=== PATIENT | female | born 1985 | race Caucasian/White ===

== ENCOUNTER → 2022-08-07 | Outpatient (CLI) | payer OTHER, SELFPAY ==
[2022-08-07 09:30] LABS: Bacteria 0 SEEN /hpf (None Seen); Mucous, Urine 0 SEEN /hpf (<or=2+)
[2022-08-07 12:42] LABS: Color, Urine Red (Yellow); Glucose, Dipstick Normal (Normal); Ketone-Dipstick Negative (Negative); Leukocyte Esterase-Dipstick 25 /ul (Negative); Nitrite-Dipstick Negative (Negative); Occult Blood-Urine 250 /ul (Negative); Protein-Dipstick 30 mg/dl (Negative); Specific Gravity, Urine 1.005 (1.002-1.030); Urine Bilirubin Dipstick Negative (Negative); Urine Clarity Sl. Cloudy (Clear); Urine Urobilinogen Normal (Normal); Urine pH 6.5 (5.0 - 8.0)
[2022-08-07 12:44] LABS: Hematocrit 41.2 % (37-47); Hemoglobin 13.9 g/dL (12.0-15.0); Mean Corp Hgb Conc 33.7 g/dL (32-36); Mean Corpuscular Hgb 29.4 pg (27.0-32.0); Mean Corpuscular Volume 87.3 fL (81-99); Mean Platelet Vol. 11.5 fl (6.2-12.0); Platelet Count 250 K/mm3 (150-450); RBC Distribution Width CV 12.1 % (11.6-14.6); RBC Distribution Width SD 38.9 fl (35.1-43.9); Red Blood Count 4.72 M/mm3 (4.2-5.4); White Blood Count 6.4 K/mm3 (4.4-11.0)
[2022-08-07 13:04] LABS: ALB/GLOB Ratio 1.2 RATIO (0.9-2.4); AST(SGOT) 22 U/L (15-37); Alanine Aminotransfer ALT/SGPT 18 U/L (13-56); Albumin, Serum 4.1 g/dL (3.2-5.0); Alkaline Phosphatase 55 U/L (45-117); Anion Gap 8 (5-15); BUN 12 mg/dL (7-18); BUN/Creat Ratio 13.9 RATIO (10-20); Calcium,Total 9.5 mg/dL (8.5-10.1); Chloride 107 mmol/L (98-107); Creatinine, Serum 0.87 mg/dL (0.55-1.02); EST Glomerular Filtration Rate 79 mL/min (>60); Est Glom Filt Rate - Afr Amer 96 mL/min (>60); Globulin 3.4 g/dL (2.2-4.2); Glucose 93 mg/dL (74-106); Potassium 3.9 mmol/L (3.5-5.1); Protein, Total 7.5 g/dL (6.4-8.2); Sodium Level 139 mmol/L (136-145); T4 Free Direct 1.04 ng/dL (0.76-1.46); Thyroid Stim Hormone (TSH) 0.87 uIU/mL (0.358-3.74)
[2022-08-07 13:13] LABS: Red Blood Cells-Urine 25-50 SEEN /hpf (0-5); Squamous Epithelial Cells - UA 0-5 SEEN /hpf (5-10); White Blood Cells 0-5 SEEN /hpf (0-5)
[2022-08-11 01:07] LABS: Thyroid Stim Immunoglob <0.10 IU/L (0.00-0.55)
[2022-08-14 14:32] LABS: Anti-Thyroglobulin AB < 1.0 IU/mL (0.0-0.9); Thyroglobulin, Serum Qt. 5.3 ng/mL (1.5-38.5); Thyroid Peroxidase AB < 8 IU/mL (0-34)
== END | disposition home or self-care (01) ==
LOC: MFPLAB 09:28
PROVIDERS: PCP Family Medicine; Referring Provider Family Medicine; Visit Provider Family Medicine
DX: R35.0 Frequency of micturition (principal); R39.12 Poor urinary stream; E01.0 Iodine-deficiency related diffuse (endemic) goiter
CPT/HCPCS: 36415; 80053; 81001; 84432; 84439; 84443; 84445; 85027; 86376; 86800; 87086; 87088

== ENCOUNTER 2022-08-12 15:14 | Outpatient (CLI) | payer OTHER, SELFPAY ==
--- NOTE | 2022-08-12 15:18 | US_ITS ---
EXAM: US SOFT TISSUES HEAD AND NECK, THYROID CLINICAL INDICATION: THYROMEGALY TECHNIQUE: Greyscale and color doppler imaging was performed of the thyroid gland. This report was created using [employer] technology. COMPARISON: None. FINDINGS: LEFT THYROID LOBE: Nodule inferior aspect of the left lobe of the thyroid that measures 7 x 5 x 4 mm, is solid, hypoechoic, taller than wide, with a smooth margin and no echogenic foci. Left lobe of thyroid measures 5.9 x 2.0 x 1.1 cm. The volume of the left lobe of thyroid measures 7.0 mL. RIGHT THYROID LOBE: Nodule superior aspect of the right lobe of the thyroid that measures 4 x 3 x 3 mm, is cystic and solid, hypoechoic, taller than wide, with a smooth margin and no echogenic foci. Right lobe of the thyroid measures 5.7 x 1.9 x 1.3 cm. The volume of the right lobe of the thyroid measures 7.4 mL. ISTHMUS: The isthmus measures 2 mm in thickness. No thyroid nodules are present. US/Thyroid IMPRESSION: 1. Thyroid gland upper normal in size with a volume of 14.4 mL. 2. Nodule superior aspect of the right lobe of the thyroid that measures 4 x 3 x 3 mm, is cystic and solid, hypoechoic, taller than wide, with a smooth margin and no echogenic foci. 3. Nodule inferior aspect of the left lobe of the thyroid that measures 7 x 5 x 4 mm, is solid, hypoechoic, taller than wide, with a smooth margin and no echogenic foci. RECOMMENDATIONS: 1. Nodule superior aspect of the right lobe of the thyroid that measures 4 x 3 x 3 mm, is cystic and solid, hypoechoic, taller than wide, with a smooth margin and no echogenic foci. TI-RADS points: 6. TI-RADS category: TR4. This nodule is moderately suspicious but no FNA or follow-up is necessary given the small size of this nodule. 2. Nodule inferior aspect of the left lobe of the thyroid that measures 7 x 5 x 4 mm, is solid, hypoechoic, taller than wide, with a smooth margin and no echogenic foci. TI-RADS points: 7. TI-RADS category: TR5. This nodule is highly suspicious but no FNA or follow-up is necessary given the small size of this nodule. Electronically Signed: James Tipton MD at 5:32 EST ,
--- NOTE | 2022-08-12 15:18 | US_ITS ---
STUDY: ULTRASOUND - URINARY BLADDER REASON FOR EXAM: Female, 37 years old. INCOMPLETE BLADDER EMPTYING- INCREASED FREQUENCY TECHNIQUE: Ultrasound evaluation of the urinary bladder was performed with real-time and static padron-scale imaging. COMPARISON: None. FINDINGS: There is no right UVJ calculus. There is a visualized right ureteral jet. There is no left UVJ calculus. There is a visualized left ureteral jet. The distended volume of the urinary bladder is 74.48 ml. The empty volume of the urinary bladder is 4.2 ml. The bladder wall is within normal limits. The bladder wall measures 2 mm. There is no demonstrated bladder wall mass lesion. There are no demonstrated bladder calculi. US/Post Void Residual Bladder IMPRESSION: Normal ultrasound of the urinary bladder. Electronically Signed: Elias Brooks MD at 22:57 EST ,
== END 2022-08-12 23:59 | disposition home or self-care (01) ==
LOC: US 15:16
PROVIDERS: PCP Family Medicine; Referring Provider Family Medicine; Visit Provider Family Medicine
DX: R33.9 Retention of urine, unspecified (principal); E01.0 Iodine-deficiency related diffuse (endemic) goiter
CPT/HCPCS: 51798; 76536

== ENCOUNTER → 2022-08-21 | Outpatient (CLI) | payer OTHER, SELFPAY ==
[2022-08-21 12:38] LABS: AST(SGOT) 15 U/L (15-37); Alanine Aminotransfer ALT/SGPT 22 U/L (13-56); Albumin, Serum 4.1 g/dL (3.2-5.0); Alkaline Phosphatase 57 U/L (45-117); Bilirubin, Direct 0.28 mg/dL (0.00-0.30); Globulin 3.3 g/dL (2.2-4.2); Protein, Total 7.4 g/dL (6.4-8.2)
== END | disposition home or self-care (01) ==
LOC: MTLAB 10:34
PROVIDERS: PCP Family Medicine; Referring Provider Family Medicine; Visit Provider Family Medicine
DX: E80.6 Other disorders of bilirubin metabolism (principal)
CPT/HCPCS: 36415; 80076

== ENCOUNTER → 2022-12-14 | Outpatient (CLI) | payer OTHER, SELFPAY ==
[2022-12-22 15:50] LABS: HPV APTIMA, High Risk Negative (Negative)
[2022-12-22 18:58] LABS: HPV Reflexed? YES, CHARGE PATIENT
== END | disposition home or self-care (01) ==
LOC: LABSPEC 14:00
PROVIDERS: PCP Family Medicine; Visit Provider Family Medicine
DX: Z01.419 Encounter for gynecological examination (general) (routine) without abnormal findings (principal)
CPT/HCPCS: 87624; 88175; G0145

== ENCOUNTER 2025-07-02 19:43 | Emergency (ER) | payer OTHER, SELFPAY ==
[2025-07-02 19:43] VITALS: BP 167/103; PULSE 83; RESP 16; TEMP 36.6; O2SAT 99; BMI 32.8
--- NOTE | 2025-07-02 20:48 | RAD_ITS ---
PROCEDURE: ANKLE MIN 3 VIEWS 07/02/2025 REASON FOR EXAM: INJURY/PAIN TECHNIQUE: Procedure Code: RADANK Modality: DX Procedure: ANKLE MIN 3 VIEWS Laterality: FINDINGS: No evidence of acute fracture or dislocation. Marked soft tissue swelling overlying the lateral malleolus. RAD/Ankle min 3 Views IMPRESSION: No acute osseous abnormality. Marked soft tissue swelling overlying the lateral malleolus. Reading Location: [id number]
[2025-07-02] MEDS: HYDROcodone Bitartrate/Apap 5/325 Tablet PO (20:57)
--- NOTE | 2025-07-02 21:33 | EX.ED.GENINJ ---
HPI History of Present Illness Chief Complaint: Lower Extremity Injury Detail of Chief Complaint: Plantar inversion mechanism of injury left ankle Informant: patient Onset/Context/Timing Onset: Hours Mechanism/Context: Blunt Injury (Misjudged how many steps there were and had a plantar inversion mechanism injury) Location of pain/injuries: Left ankle Quality of Pain: Dull and Aching Location: Lateral left ankle Current Severity: Mild Maximum Severity: Severe Worsened by: Movement and weightbearing Relieved by: Better with rest and elevation Associated Symptoms Associated Symptoms: Negative for Parasthesias, Weakness, Loss of function or Inability to ambulate Narrative Narrative: Patient is a 40-year-old female. She presents with a plantar inversion mechanism injury to her left ankle. She denies prior fracture. She denies paresthesia, anesthesia buttocks. She denies ankle or hip pain. Prior similar symptoms: No Recent Illness/Hospitalization: No [facility] Medical History Pneumonia Home Medications ?Medication ?Instructions ?Recorded ?Last Taken ?Type NK 07/02/25 Unknown History Allergy/AdvReac Type Severity Reaction Status Date / Time doxycycline AdvReac Vomiting Verified 07/02/25 19:43 Social History household members: spouse current occupational status: employed Smoking Status: Never smoker ROS ROS ED Musculoskeletal Musculoskeletal: Reports other Details: HPI narrative ; Denies arthralgias or myalgias Integumentary Denies Abrasions or rash Neurologic Neurologic: Denies paresthesias or weakness Hematologic/Lymphatic Hematologic/Lymphatic: Denies easy bleeding or easy bruising EXAM Physical Exam Const Vital Signs: 07/02/25 19:43 Temperature 97.8 F Temperature Source Oral Pulse Rate 83 Respiratory Rate 16 Blood Pressure 167/103 H Blood Pressure Mean 124 Pulse Ox 99 Positive well nourished and well developed General Appearance ED: well developed and NAD HEENT atraumatic Eyes PERRL and EOMs intact bilaterally Resp normal respiratory effort Cardio regular rhythm Rate: regular rate Extremity full ROM; Negative for normal to inspection Extremity Narrative: There is swelling lateral malleolus on the left. There is pain palpation posterior distal 3 cm. There is no laxity with drawer testing. There is no pain the patient base of the fifth metatarsal. DP and PT pulse are palpable. Neuro oriented x3, CN's II-XII intact bilaterally, moves all extremities, no focal motor deficits and no sensory deficits noted Psych mental status grossly normal and thought process normal Skin Skin Narrative: Soft tissue swelling MDM MDM MDM Narrative Medical decision making narrative: Per the [place] ankle rule imaging is indicated rule out fracture versus sprain. Radiography Chest X-Ray - ED: Read by ED Physician (Three-view x-ray of the left ankle reveals soft tissue swelling laterally. There is no fracture, subluxation dislocation. There is no asymmetry of the mortise or widening of the mortise.) Diagnostic Testing: Clinical Impression(s) from Imaging Studies Ankle X-Ray 07/02/25 20:48 IMPRESSION: No acute osseous abnormality. Marked soft tissue swelling overlying the lateral malleolus. Reading Location: [facility] Treatment and Re-Evaluation Narrative: Patient was informed of results and exercises that are needed to strengthen her ligaments. Discharge Plan Triage Chief Complaint: Lower Extremity Injury ED Provider: Robert Figueroa Dx/Rx/DC Orders Clinical Impression: Sprain of anterior talofibular ligament of left ankle, Sprain of calcaneofibular ligament of left ankle Instructions: Ankle Inversion (Strength), ED Ankle Sprain (Adult) Prescriptions: No Action NK Primary Care Provider: Jerel Rodriguez Referrals: Jerel Rodriguez MD [Primary Care Provider, Family Practice] - 10-14 Days if not better Activity Restrictions/Additional Instructions: 1. Apply ice 6-8 times a day. 2. Draw the alphabet with your foot 4-6 times a day. 3. If you have ibuprofen take 4 every 8 hours for the next 3 to 5 days or take 2 Aleve tablets every 12 hours for next 3 to 5 days. 4. Wear a flat shoe. 5. Do not go up and down ladders or inclines. Print Language: [place] Disposition Disposition: Home, Self Care
[2025-07-02 21:42] VITALS: BP 167/103; PULSE 83; RESP 16; TEMP 36.6; O2SAT 99
== END 2025-07-02 21:50 | disposition home or self-care (01) ==
PROVIDERS: Emergency Provider Emergency Medicine; PCP Family Medicine; Visit Provider Emergency Medicine
DX: S93.492A Sprain of other ligament of left ankle, initial encounter (principal); S93.412A Sprain of calcaneofibular ligament of left ankle, initial encounter; X58.XXXA Exposure to other specified factors, initial encounter
CPT/HCPCS: 73610; 99282

== ENCOUNTER → 2025-07-28 | Outpatient (CLI) | payer OTHER, SELFPAY | END | disposition home or self-care (01) | LOC: MRI 08:36 | PROVIDERS: PCP Family Medicine; Referring Provider Family Medicine; Visit Provider Family Medicine | DX: S86.012A Strain of left Achilles tendon, initial encounter (principal) | CPT/HCPCS: 73718; 73721 ==